=== PATIENT | female | born 1970 | race Caucasian/White ===

== ENCOUNTER → 2019-03-10 | Outpatient (CLI) | payer OTHER ==
[~2019-03-10] MED LIST: CLON1 PO; DIVA250EC PO; LAMO100 PO; LISI10 PO; NAPR500 PO; PROC5 PO; VENL150ER PO
== END | disposition home or self-care (01) ==
LOC: LAB EV 17:15 → LAB SHORT 17:15
DX: N39.0 Urinary tract infection, site not specified (principal)
CPT/HCPCS: 87077; 87086; 87186

== ENCOUNTER → 2019-09-02 | Outpatient (CLI) | payer OTHER | END | disposition home or self-care (01) | LOC: LAB EV 19:12 → LAB SHORT 19:12 | DX: N39.0 Urinary tract infection, site not specified (principal) | CPT/HCPCS: 87077; 87086; 87186 ==

== ENCOUNTER → 2020-06-11 | Outpatient (CLI) | payer OTHER ==
[~2020-06-11] MED LIST changes: +CLOBET30L TOP; +HYDHCL25 PO; +HYDPAM25 PO; +OMEP20ER PO; +TRIA15CR3 TOP
[2020-06-12 15:11] LABS: HPV 16 Negative (Negative); HPV 18 Negative (Negative); HPV OTHER HR TYPES Positive (Negative)
== END ==
LOC: EDSTATUS 11:03 → LAB SHORT 14:56 → LAB 14:56
PROVIDERS: Obstetrics & Gynecology
DX: Z01.419 Encounter for gynecological examination (general) (routine) without abnormal findings (principal)
CPT/HCPCS: 87624; G0123

== ENCOUNTER 2020-06-18 00:35 | Day surgery (SDC) | payer OTHER ==
[~2020-06-18 00:35] MED LIST changes: -CLOBET30L TOP; -HYDHCL25 PO; -HYDPAM25 PO; -OMEP20ER PO; -TRIA15CR3 TOP
== END 2020-06-18 23:02 | disposition home or self-care (01) ==
LOC: ATC 00:35
DX: D50.9 Iron deficiency anemia, unspecified (principal); I10 Essential (primary) hypertension; E03.9 Hypothyroidism, unspecified; F17.210 Nicotine dependence, cigarettes, uncomplicated; Z88.5 Allergy status to narcotic agent; Z88.2 Allergy status to sulfonamides; Z79.899 Other long term (current) drug therapy
CPT/HCPCS: J2916

== ENCOUNTER 2020-07-03 00:39 | Day surgery (SDC) | payer OTHER ==
[~2020-07-03 00:39] MED LIST changes: +CLOBET30L TOP; +HYDHCL25 PO; +HYDPAM25 PO; +OMEP20ER PO; +TRIA15CR3 TOP
== END 2020-07-03 16:00 | disposition home or self-care (01) ==
LOC: ATC 00:39
DX: D50.9 Iron deficiency anemia, unspecified (principal); E03.9 Hypothyroidism, unspecified; I10 Essential (primary) hypertension; F17.200 Nicotine dependence, unspecified, uncomplicated; F41.9 Anxiety disorder, unspecified
CPT/HCPCS: J2916

== ENCOUNTER → 2020-10-08 | Outpatient (CLI) | payer OTHER ==
[2020-10-09 09:02] LABS: Candida species (DNA Probe) Negative (NEGATIVE); G. vaginalis (DNA Probe) Positive (NEGATIVE); T. vaginalis (DNA Probe) Negative (NEGATIVE)
== END | disposition home or self-care (01) ==
LOC: LAB SHORT 13:59 → LAB 13:59
PROVIDERS: Obstetrics & Gynecology
DX: N76.0 Acute vaginitis (principal)
CPT/HCPCS: 87480; 87510; 87660

== ENCOUNTER 2020-10-12 01:30 | Day surgery (SDC) | payer OTHER | END 2020-10-12 11:12 | disposition home or self-care (01) | LOC: ATC 01:30 | DX: D50.9 Iron deficiency anemia, unspecified (principal); E03.9 Hypothyroidism, unspecified; I10 Essential (primary) hypertension; F17.210 Nicotine dependence, cigarettes, uncomplicated; Z88.2 Allergy status to sulfonamides; Z88.5 Allergy status to narcotic agent | CPT/HCPCS: 96365; J2916 ==

== ENCOUNTER → 2020-11-02 | Outpatient (CLI) | payer OTHER | END | disposition home or self-care (01) | LOC: LAB 16:47 → LAB SHORT 16:47 | DX: R30.9 Painful micturition, unspecified (principal) | CPT/HCPCS: 87077; 87086; 87186 ==

== ENCOUNTER → 2020-12-02 | Outpatient (CLI) | payer OTHER ==
[2020-12-03 09:59] LABS: Candida species (DNA Probe) Negative (NEGATIVE); G. vaginalis (DNA Probe) Positive (NEGATIVE); T. vaginalis (DNA Probe) Negative (NEGATIVE)
== END | disposition home or self-care (01) ==
LOC: LAB SHORT 16:25
PROVIDERS: Obstetrics & Gynecology
DX: N76.0 Acute vaginitis (principal)
CPT/HCPCS: 87480; 87510; 87660

== ENCOUNTER → 2020-12-22 | Outpatient (CLI) | payer OTHER ==
[2020-12-24 15:40] LABS: CORONAVIRUS (COVID19) CSH-NRL Positive (Negative)
== END ==
LOC: LAB 15:23 → LAB SHORT 15:23
PROVIDERS: Family Medicine
DX: U07.1 COVID-19 (principal); Z88.2 Allergy status to sulfonamides; Z88.5 Allergy status to narcotic agent
CPT/HCPCS: U0003

== ENCOUNTER → 2021-04-15 | Outpatient (CLI) | payer OTHER | END | disposition home or self-care (01) | LOC: LAB SHORT 15:14 → PLD 15:14 | DX: R87.810 Cervical high risk human papillomavirus (HPV) DNA test positive (principal) | CPT/HCPCS: 88305 ==

== ENCOUNTER 2022-05-18 02:27 | Day surgery (SDC) | payer OTHER | END 2022-05-18 14:43 | disposition home or self-care (01) | LOC: ATC 02:27 | DX: D50.9 Iron deficiency anemia, unspecified (principal); Z88.2 Allergy status to sulfonamides; Z88.5 Allergy status to narcotic agent; F41.9 Anxiety disorder, unspecified; F32.A Depression, unspecified | CPT/HCPCS: 96365; J2916 ==

== ENCOUNTER 2022-05-25 02:04 | Day surgery (SDC) | payer OTHER | END 2022-05-25 15:10 | disposition home or self-care (01) | LOC: ATC 02:04 | DX: D50.9 Iron deficiency anemia, unspecified (principal); I10 Essential (primary) hypertension; M19.90 Unspecified osteoarthritis, unspecified site; F31.0 Bipolar disorder, current episode hypomanic | CPT/HCPCS: 96365; J2916 ==

== ENCOUNTER 2022-07-11 11:53 | Day surgery (SDC) | payer OTHER ==
[2022-07-11 15:05] VITALS: BP 102/58
== END 2022-07-11 16:03 | disposition home or self-care (01) ==
LOC: ATC 11:53
DX: D50.9 Iron deficiency anemia, unspecified (principal)
CPT/HCPCS: 96365; J2916

== ENCOUNTER 2022-07-18 02:28 | Day surgery (SDC) | payer OTHER ==
[2022-07-18 14:28] VITALS: BP 109/65
[2022-07-18] MEDS ORDERED: LATUDA20 M3 PO (14:31)
[2022-07-18] MEDS ORDERED: VENLAFAXINE HC225 MG PO (14:32)
== END 2022-07-18 15:31 | disposition home or self-care (01) ==
LOC: ATC 02:28
DX: D50.9 Iron deficiency anemia, unspecified (principal); F31.9 Bipolar disorder, unspecified; I10 Essential (primary) hypertension; M19.90 Unspecified osteoarthritis, unspecified site
CPT/HCPCS: 96365; J2916

== ENCOUNTER 2022-08-05 02:33 | Day surgery (SDC) | payer OTHER ==
[~2022-08-05 02:33] MED LIST changes: +LATUDA20 M3 PO; +VENLAFAXINE HC225 MG PO
[2022-08-05 10:55] VITALS: BP 117/81
== END 2022-08-05 11:51 | disposition home or self-care (01) ==
LOC: ATC 02:33
DX: D50.9 Iron deficiency anemia, unspecified (principal); I10 Essential (primary) hypertension
CPT/HCPCS: 96365; J2916

== ENCOUNTER 2023-03-07 01:38 | Day surgery (SDC) | payer OTHER ==
[2023-03-07 08:14] VITALS: BP 116/61
== END 2023-03-07 09:35 | disposition home or self-care (01) ==
LOC: ATC 01:38
DX: D50.9 Iron deficiency anemia, unspecified (principal); E03.9 Hypothyroidism, unspecified
CPT/HCPCS: 96365; J2916

== ENCOUNTER 2023-03-14 02:45 | Day surgery (SDC) | payer OTHER ==
[2023-03-14 15:33] VITALS: BP 111/59
== END 2023-03-14 16:50 | disposition home or self-care (01) ==
LOC: ATC 02:45
DX: D50.9 Iron deficiency anemia, unspecified (principal); E03.9 Hypothyroidism, unspecified; I10 Essential (primary) hypertension; F31.9 Bipolar disorder, unspecified; F17.210 Nicotine dependence, cigarettes, uncomplicated
CPT/HCPCS: 96365; J2916

== ENCOUNTER 2023-03-21 00:34 | Day surgery (SDC) | payer OTHER ==
[2023-03-21 15:50] VITALS: BP 112/74
== END 2023-03-21 16:55 | disposition home or self-care (01) ==
LOC: ATC 00:34
DX: D50.9 Iron deficiency anemia, unspecified (principal); I10 Essential (primary) hypertension; E03.9 Hypothyroidism, unspecified; F31.9 Bipolar disorder, unspecified; F17.210 Nicotine dependence, cigarettes, uncomplicated
CPT/HCPCS: 96365; J2916

== ENCOUNTER 2023-03-29 02:27 | Day surgery (SDC) | payer OTHER ==
[2023-03-29 14:45] VITALS: BP 103/68
== END 2023-03-29 15:46 | disposition home or self-care (01) ==
LOC: ATC 02:27
DX: D50.9 Iron deficiency anemia, unspecified (principal); Z88.2 Allergy status to sulfonamides; I10 Essential (primary) hypertension; E03.9 Hypothyroidism, unspecified; F31.9 Bipolar disorder, unspecified; F17.210 Nicotine dependence, cigarettes, uncomplicated
CPT/HCPCS: 96365; J2916

== ENCOUNTER 2023-04-13 01:30 | Day surgery (SDC) | payer OTHER ==
[2023-04-13 08:13] VITALS: BP 118/72
== END 2023-04-13 09:11 | disposition home or self-care (01) ==
LOC: ATC 01:30
DX: D50.9 Iron deficiency anemia, unspecified (principal); F17.210 Nicotine dependence, cigarettes, uncomplicated; F31.9 Bipolar disorder, unspecified; I10 Essential (primary) hypertension; E03.9 Hypothyroidism, unspecified
CPT/HCPCS: 96365; J2916

== ENCOUNTER 2023-04-20 01:15 | Day surgery (SDC) | payer OTHER ==
[2023-04-20] MEDS ORDERED: Sod Ferric Gluc Complx/Sucrose 125 MG in NS 100 ML IV SCH (06:00)
[2023-04-20 15:10] VITALS: BP 129/77
== END 2023-04-20 16:14 | disposition home or self-care (01) ==
LOC: ATC 01:15
DX: D50.8 Other iron deficiency anemias (principal); E03.9 Hypothyroidism, unspecified; I10 Essential (primary) hypertension; F17.210 Nicotine dependence, cigarettes, uncomplicated; Z88.5 Allergy status to narcotic agent; Z88.2 Allergy status to sulfonamides; Z79.899 Other long term (current) drug therapy
CPT/HCPCS: 96365; J2916